=== PATIENT | male | born 1980 | race African-American/Black ===

== ENCOUNTER 2018-11-19 06:18 | Emergency (ER) | payer MEDICAID ==
[~2018-11-19] VITALS: Ht 175.3 cm; Wt 101.0 kg
[2018-11-19] MEDS ORDERED: KETOROLAC 30MG/ML VIAL IM ONE (07:30)
[2018-11-19 10:43] VITALS: BP 135/72
== END 2018-11-19 10:46 | disposition home or self-care (01) ==
LOC: ER 06:18
DX: S39.012A Strain of muscle, fascia and tendon of lower back, initial encounter (principal); S60.512A Abrasion of left hand, initial encounter; S90.511A Abrasion, right ankle, initial encounter; F12.10 Cannabis abuse, uncomplicated; W11.XXXA Fall on and from ladder, initial encounter; Y93.89 Activity, other specified; Y92.89 Other specified places as the place of occurrence of the external cause; Y99.8 Other external cause status
CPT/HCPCS: 73502; 96372; 99283; J1885